=== PATIENT | male | born 1985 ===

== ENCOUNTER 2017-11-20 04:19 | Emergency (ER) | payer MEDICAID ==
[2017-11-20 04:39] VITALS: BP 153/79; PULSE 91; RESP 18; TEMP 97.3; O2SAT 98
[2017-11-20] MEDS ORDERED: Naproxen 500 MG TAB PO STA (05:09)
[2017-11-20] MEDS ORDERED: Tdap Vaccine 0.5 ml Vial (10-64 yrs) IM ONE ×2 (05:09→05:44)
--- NOTE | 2017-11-20 05:29 | ED PDOC ---
HPI: General Adult Time Seen by Provider: 11/20/17 04:31 Chief Complaint (Nursing): Medical Clearance History Per: Patient History/Exam Limitations: no limitations Additional Complaint(s): 32 yo M presents under police custody, is under arrest, c/o R shoulder pain and a few minor abrasions to his neck sustained from the arrest. Reports no head injury, LOC, neck pain, back pain, CP, abdominal pain, any other injuries or complaints. Reports no depression, SI, HI. Past Medical History Vital Signs: Last Vital Signs Temp 97.3 F L 11/20/17 04:36 Pulse 91 H 11/20/17 04:36 Resp 18 11/20/17 04:36 BP 153/79 H 11/20/17 04:36 Pulse Ox 98 11/20/17 06:05 - Medical History PMH: Hypercholesterolemia - Family History Family History: States: Unknown Family Hx - Immunization History Hx Tetanus Toxoid Vaccination: No Hx Influenza Vaccination: No Hx Pneumococcal Vaccination: No - Home Medications Home Medications: Ambulatory Orders Medication Instructions Recorded No Known Home Med 05/15/15 - Allergies Allergies/Adverse Reactions: Allergies Allergy/AdvReac Type Severity Reaction Status Date / Time No Known Allergies Allergy Verified 03/27/16 10:50 Review of Systems Constitutional: Negative for: Fever, Malaise Cardiovascular: Negative for: Chest Pain, Palpitations Respiratory: Negative for: Cough, Shortness of Breath Gastrointestinal: Negative for: Vomiting, Abdominal Pain Genitourinary Male: Negative for: Dysuria, Frequency Musculoskeletal: Positive for: Shoulder Pain (R shoulder pain). Negative for: Neck Pain, Back Pain Skin: Negative for: Rash, Lesions Neurological: Negative for: Weakness, Numbness Physical Exam - Physical Exam Appears: Positive for: Well, Non-toxic, No Acute Distress Head Exam: Positive for: ATRAUMATIC, NORMAL INSPECTION, NORMOCEPHALIC Skin: Positive for: Normal Color, Warm, DRY Eye Exam: Positive for: EOMI, Normal appearance, PERRL ENT: Positive for: Normal ENT Inspection Neck: Positive for: Normal, Painless ROM, Supple (+few small superficial abrasions to the anterior neck) Cardiovascular/Chest: Positive for: Regular Rate, Rhythm, Chest Non Tender. Negative for: Murmur Respiratory: Positive for: Normal Breath Sounds. Negative for: Rales, Rhonchi, Wheezing Pulses-Radial (L): 2+ Pulses-Radial (R): 2+ Gastrointestinal/Abdominal: Positive for: Normal Exam, Soft. Negative for: Tenderness Back: Positive for: Normal Inspection. Negative for: Vertebral Tenderness Extremity: Positive for: Normal ROM, Capillary Refill (normal). Negative for: Tenderness, Deformity, Swelling Neurologic/Psych: Positive for: Alert, shoe repair cobbler II-XII, Oriented. Negative for: Motor/Sensory Deficits, Facial Droop - ECG O2 Sat by Pulse Oximetry: 98 Medical Decision Making Medical Decision Making: Plan : - tdap IM - naprosyn po - XR R shoulder - crisis evaluation XR R shoulder : no fracture, no dislocation, no AC separation, as read by PA. XR results d/w the patient. Shoulder sling applied. Patient seen and evaluated by crisis. After crisis evaluation, plan will be for outpatient psych follow up as per for adjustment d/o. Disposition - Clinical Impression Clinical Impression: Right shoulder strain - Patient ED Disposition Is Patient to be Admitted: No Counseled Patient/Family Regarding: Studies Performed, Diagnosis, Need For Followup - Disposition Referrals: [facility] [Outside] Disposition: Discharged/Transfer to Law Enforcement Disposition Time: 06:00 Condition: STABLE Additional Instructions: Patient is medically and psychiatrically cleared for incarceration. Instructions: Shoulder Sprain, General (DC) Forms: [employer] ([employer]) - PA / BMET / Resident Statement MD/DO has reviewed & agrees with the documentation as recorded.
[2017-11-20] MEDS ORDERED: Naproxen 500 MG TAB PO ONE (05:43)
--- NOTE | 2017-11-20 09:43 | RAD ---
PROCEDURE: Radiographs of the Right Shoulder HISTORY: pain COMPARISON: No prior. FINDINGS: BONES: Normal. No fracture. JOINTS: Normal. Glenohumeral and acromioclavicular joints preserved. No osteoarthritis. SOFT TISSUES: Normal. OTHER FINDINGS: None. IMPRESSION: Normal radiographs of the right shoulder.
== END 2017-11-20 06:20 ==
LOC: H.ER 04:19
DX: S46.911A Strain of unspecified muscle, fascia and tendon at shoulder and upper arm level, right arm, initial encounter (principal); S10.91XA Abrasion of unspecified part of neck, initial encounter; Y35.813A Legal intervention involving manhandling, suspect injured, initial encounter; Y92.89 Other specified places as the place of occurrence of the external cause; E78.00 Pure hypercholesterolemia, unspecified